=== PATIENT | female | born 1975 | race Caucasian/White ===

== ENCOUNTER 2022-05-27 10:00 | Outpatient (CLI) | payer OTHER, SELFPAY ==
[2022-05-27 11:36] LABS: Cholesterol* 208 mg/dL (90-199); Glucose* 99 mg/dL (60-115); HDL Cholesterol* 61 mg/dL (>=50); LDL Cholesterol Calculated 133 mg/dL (<100); Triglycerides* 72 mg/dL (40-149)
== END 2022-05-27 10:01 | disposition home or self-care (01) ==
PROVIDERS: PCP Family Medicine; Visit Provider Family Medicine
DX: Z13.1 Encounter for screening for diabetes mellitus (principal); Z13.6 Encounter for screening for cardiovascular disorders
CPT/HCPCS: 80061; 82947; 87624; 88175

== ENCOUNTER 2023-08-24 10:11 | Outpatient (CLI) | payer OTHER, SELFPAY | END 2023-08-24 10:12 | disposition home or self-care (01) | PROVIDERS: PCP Internal Medicine; Visit Provider Internal Medicine | DX: L65.9 Nonscarring hair loss, unspecified (principal) | CPT/HCPCS: 82728; 84443 ==

== ENCOUNTER 2023-09-22 07:30 | Outpatient (RCR) | payer OTHER, SELFPAY ==
--- NOTE | 2023-09-09 10:28 | PT.OPEX ---
[facility] Start: 09/09/23 07:21 Freq: Status: Active Protocol: Document 09/09/23 07:22 CRP (Rec: 09/09/23 10:24 CRP [id number]) E-signed By Teo Millan, PT Physical Therapy Outpatient Evaluation Insurance Information Insurance Name [employer] Medical Diagnosis Lesion of sciatic nerve, R lower limb Low back pain Treating Diagnosis Low back pain R gluteal pain Referring MD Dr Olson Subjective Subjective Pt reports that about a year and a half ago pulled son on wagon for many hours and strained her back. Pain is R SI and into R glute to the top of her hamstring. Pain increases with bending, twisting. Sxs are better overall since it happened but still an issue. Able to do what she needs to do during the day. It just hurts. 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 Does try to get a lot of walking in. 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 [employer] Objective Range of Motion Trunk ROM Flex WNL with pain Ext WNL with pain R SB min dec with pain L SB min Dec Bilat rot WNL Hip ROM Strength MMT: myotomes WNL Palpation Palpable lumbar erector spinae , multifidus and quadratus lumborum pain on R Posture Shows hyperlordosis into the TL spine Sensation/Reflexes Sensation intact to light touch Other/Pertinent Objective Segmental testing: Painful and hypomob L3-4 Functional Test Performed & Score SLR negative bilat Assessment Assessment/Impression Pt presents to the clinic with long standing issues of pain into the R SI region and gluteals. Pts pain presentation suggests this pain is referred from the R lower lumbar spine. Pt shows lumbar spine mobility dysfunction and related pain. Skilled PT is recommended to incorporate ther ex, nm ashleigh, manual therapy and pt education to decrease pain and improve functional mobility. Plan of Care Rehabilitation Potential Excellent Physical Therapy Goals 1. Pt will be 100% independent with HEP in 6 weeks 2. Pt will sit for work without co pain in 10 weeks. 3. Pt will return to full workout routine without pain in 12 weeks. Coordination/Communication With Referral Source Treatment Plan/Direct Interventions Joint Mobilization,Manual Therapy,Neuromuscular Re-ed, Self-Care/Home Management, Therapeutic Activities, Therapeutic Exercises Frequency/Duration 1-2x/wk for 12 weeks Patient Will Be Discharged From Therapy Completion of LTG(s),Skills Plateau,Independent w/HEP, Independently Progressing Evaluation Billing Untimed Code Treatment Minutes 30 Complexity Moderate Certification Information Physician Comment/Change : Physician NPI Number #
== END 2023-12-03 11:53 | disposition home or self-care (01) ==
PROVIDERS: PCP Internal Medicine; Visit Provider Internal Medicine
DX: G57.01 Lesion of sciatic nerve, right lower limb (principal); M54.50 Low back pain, unspecified; M79.18 Myalgia, other site; Z51.89 Encounter for other specified aftercare
CPT/HCPCS: 97110; 97140; 97162